=== PATIENT | male | born 1935 | race African-American/Black ===

== ENCOUNTER 2017-06-12 09:24 | Inpatient (IN) | payer OTHER, MEDICARE ==
[2017-06-12] VITALS (11 sets, daily range): BP systolic 140–211; BP diastolic 78–118; PULSE 77–115; RESP 16–19; TEMP 97.6–100.7; O2SAT 96–100
[~2017-06-12] VITALS: Ht 172.7 cm; Wt 61.0 kg
[~2017-06-12 09:24] MED LIST: AMLO10 PO; ASPI325T PO; DOXA1 PO; HYDR-2768 PO; IBUP400T20 PO; LISI-366 PO; SULF1TAB47 PO; TOPR200T PO
[2017-06-12] MEDS ORDERED: SODIUM CHLORID 0.9% 500 ML INJ 500 ML IV ONE (09:45)
[2017-06-12] MEDS ORDERED: ONDANSETRON HCL 4 MG/2 ML VIAL IV PUSH ONE (09:45)
--- NOTE | 2017-06-12 09:57 | PD ---
HPI Chief Complaint: Abdominal Pain Time Seen by Provider: 09:42 Travel History International Travel<30 days: No Contact w/Intl Traveler<30days: No Traveled to known affect area: No History of Present Illness HPI 81-year-old male presents with about a week of abdominal pain and vomiting with difficulty going to the bathroom. He states he was given a constipation medication that he does not know the name once and that was able to help him go to the bathroom but he still having the pain and vomiting. He states he gets this every so often it was here a couple months ago but he does not know what he was here for. Quality is crampy. Location is [place]. He denies any other concurrent complaints but history is limited as patient is a poor historian. PFSH Past Medical History Blood Disorders: No Cancer: Yes (PROSTATE) Cardiovascular Problems: No Chemotherapy: No Congestive Heart Failure: Yes Diminished Hearing: No Endocrine: No Gastrointestinal Disorders: No Genitourinary: No Hypertension: Yes Immune Disorder: No Musculoskeletal: No Neurologic: No Psychiatric: No Reproductive: No Respiratory: No Radiation Therapy: No Renal Failure: Yes Sickle Cell Disease: No ?: Not Past Surgical History Abdominal Surgery: Yes (spleenectomy) AICD: No Arteriovenous Shunt: No Ear Surgery: No Eye Surgery: No Genitourinary Surgery: Yes Gynecologic Surgery: No Insulin Pump: No Joint Replacement: No Oral Surgery: No Pacemaker: No Thoracic Surgery: No Other Surgery: No Social History Alcohol Use: No Tobacco Use: Yes (CHEWS TOBACCO) Substance Use: No Allergies-Medications (Allergen,Severity, Reaction): Coded Allergies: No Known Allergies (Verified Allergy, Unknown, 06/12/17) Reported Meds & Prescriptions Reported Meds & Active Scripts Active Review of Systems Except as stated in HPI: all other systems reviewed are Neg Physical Exam Narrative GENERAL: 81-year-old male in no apparent distress SKIN: Focused skin assessment warm/dry. HEAD: Atraumatic. Normocephalic. EYES: no scleral icterus. No injection or drainage. ENT: No nasal bleeding or discharge. Mucous membranes pink and moist. NECK: Trachea midline. No JVD. CARDIOVASCULAR: Regular rate and rhythm. RESPIRATORY: No accessory muscle use. Clear to auscultation. Breath sounds equal bilaterally. GASTROINTESTINAL: Abdomen soft, tenderness to periumbilical area, nondistended. no rebound MUSCULOSKELETAL: No obvious deformities. No clubbing. No cyanosis. No edema. NEUROLOGICAL: Awake. Moves all extremities. Normal speech. Data Data Last Documented VS Vital Signs Date Time Temp Pulse Resp B/P (MAP) Pulse Ox O2 Delivery O2 Flow Rate FiO2 06/12/17 12:58 103 19 191/118 (142) 99 Room Air 06/12/17 09:40 97.6 Orders Orders Complete Blood Count With Diff (06/12/17 09:32) Comprehensive Metabolic Panel (06/12/17 09:32) Urinalysis - C+S If Indicated (06/12/17 09:32) Lipase (06/12/17 09:32) Iv Access Insert/Monitor (06/12/17 09:32) Electrocardiogram (06/12/17 ) Sodium Chlorid 0.9% 500 Ml Inj (Ns 500 M (06/12/17 09:45) Ondansetron Inj (Zofran Inj) (06/12/17 09:45) Ct Abd/Pel W/O Iv Contrast (06/12/17 ) Type And Screen (06/12/17 11:08) Blood Product Administration (06/12/17 11:18) Sodium Chlor 0.9% 250 Ml Inj (Ns 250 Ml (06/12/17 11:30) Urinary Catheter Insert/Apply (06/12/17 11:20) Hydralazine (Apresoline) (06/12/17 11:45) Consult Urology (06/12/17 ) Morphine Inj (Morphine Inj) (06/12/17 13:15) (Hub Use Only)Inp Phy Cons/Ref (06/12/17 ) Hydralazine Inj (Apresoline Inj) (06/12/17 13:15) Admit Order (Ed Use Only) (06/12/17 13:09) Labs Laboratory Tests Test 06/12/17 09:43 06/12/17 11:21 White Blood Count 12.3 TH/MM3 Red Blood Count 3.43 MIL/MM3 Hemoglobin 7.3 GM/DL Hematocrit 22.9 % Mean Corpuscular Volume 66.8 FL Mean Corpuscular Hemoglobin 21.3 PG Mean Corpuscular Hemoglobin Concent 31.9 % Red Cell Distribution Width 20.7 % Platelet Count 417 TH/MM3 Mean Platelet Volume 6.8 FL Neutrophils (%) (Auto) 89.3 % Lymphocytes (%) (Auto) 6.5 % Monocytes (%) (Auto) 3.4 % Eosinophils (%) (Auto) 0.0 % Basophils (%) (Auto) 0.8 % Neutrophils # (Auto) 11.0 TH/MM3 Lymphocytes # (Auto) 0.8 TH/MM3 Monocytes # (Auto) 0.4 TH/MM3 Eosinophils # (Auto) 0.0 TH/MM3 Basophils # (Auto) 0.1 TH/MM3 CBC Comment DIFF FINAL Differential Comment Blood Urea Nitrogen 66 MG/DL Creatinine 4.03 MG/DL Random Glucose 136 MG/DL Total Protein 8.7 GM/DL Albumin 3.3 GM/DL Calcium Level 8.5 MG/DL Alkaline Phosphatase 78 U/L Aspartate Amino Transf (AST/SGOT) 16 U/L Alanine Aminotransferase (ALT/SGPT) 15 U/L Total Bilirubin 0.2 MG/DL Sodium Level 135 MEQ/L Potassium Level 5.1 MEQ/L Chloride Level 101 MEQ/L Carbon Dioxide Level 24.8 MEQ/L Anion Gap 9 MEQ/L Estimat Glomerular Filtration Rate 17 ML/MIN Lipase 326 U/L Urine Color YELLOW Urine Turbidity CLEAR Urine pH 8.0 Urine Specific [place] 1.013 Urine Protein 30 mg/dL Urine Glucose (UA) NEG mg/dL Urine Ketones NEG mg/dL Urine Occult Blood NEG Urine Nitrite NEG Urine Bilirubin NEG Urine Urobilinogen LESS THAN 2.0 MG/DL Urine Leukocyte Esterase NEG Urine RBC LESS THAN 1 /hpf Urine WBC 3 /hpf Urine Squamous Epithelial Cells 1 /hpf Microscopic Urinalysis Comment CATH-CULT NOT IND MDM Medical Decision Making Medical Screen Exam Complete: Yes Emergency Medical Condition: Yes Medical Record Reviewed: Yes (Past history confirmed) Interpretation(s) CBC & BMP Diagram 06/12/17 09:43 Total Protein 8.7 H, Albumin 3.3 L, Calcium Level 8.5, Alkaline Phosphatase 78, Aspartate Amino Transf (AST/SGOT) 16, Alanine Aminotransferase (ALT/SGPT) 15, Total Bilirubin 0.2 Last 24 hours Impressions Abdomen/Pelvis CT 06/12/17 0000 Signed Impressions: Service Date/Time: Monday, June 12, 2017 11:31 - CONCLUSION: Severely distended bladder with massive hydronephrosis left kidney. Massive hydronephrosis right kidney. Mass cannot be excluded. Trace ascites Follow up CT scan with IV contrast would be of benefit after bladder decompression and relief of the hydronephrosis. Rick Palomo MD FACR Differential Diagnosis Obstruction, pancreatitis, gastritis, gastroenteritis, constipation Narrative Course We will check blood work, urinalysis, CT scan abdominal pelvis and dose with Zofran and reevaluate labs with critical anemia. Guaiac negative. This is likely a combination from his renal failure and iron deficiency. Will start with 1 unit replacement. Patient's blood pressure is elevated this is likely secondary to pain. Given morphine and p.o. hydralazine and it started to improve. Given additional 10 mg of IV hydralazine and now is in the 120s. Assisted Dr. Hernandez with Mcmillan placement which was difficult and needed dilation and finally a small catheter was placed with significant urine output. This Mcmillan catheter cannot be removed unless discussed with the urologist. Patient will be admitted to the hospital for bladder outlet obstruction leading to significant hydronephrosis and renal failure with concurrent hypertensive urgency and anemia. Critical Care Narrative Aggregate critical care time was 45 minutes. Time to perform other separately billable procedures was not included in the critical care time. My time did not include minutes spent treating any other patients simultaneously or on activities that did not directly contribute to the patient's treatment. The services I provided to this patient were to treat and/or prevent clinically significant deterioration that could result in: Worsening renal failure, , bladder rupture I provided critical care services requiring my management, as noted below: Chart data review, documentation time, medication orders and management, vital sign assessments/reviewing monitor data, ordering and reviewing lab tests, ordering and interpreting/reviewing x-rays and diagnostic studies, care of the patient and discussion of the patient with the admitting physicians. Physician Communication Physician Communication dr hernandez called back at [phone] and will come in, asked for urology cart dr borrego agrees to admit Diagnosis Primary Impression: BLADDER NECK OBSTRUCTION Additional Impressions: Renal failure Qualified Codes: N19 - Unspecified kidney failure Hypertensive urgency Anemia Qualified Codes: D64.9 - Anemia, unspecified Admitting Information Admitting Physician Requests: it Sheri Tobin MD Jun 12, 2017 09:57
[2017-06-12 10:11] LABS: BASOPHIL # 0.1 TH/MM3 (0-0.2); BASOPHIL % 0.8 % (0.0-2.0); HEMATOCRIT 22.9 % (39.0-51.0); HEMOGLOBIN 7.3 GM/DL (13.0-17.0); LYMPH % 6.5 % (9.0-44.0); LYMPHOCYTE # 0.8 TH/MM3 (1.0-4.8); MEAN CELL VOLUME 66.8 FL (80.0-100.0); MEAN CORPUSCULAR HEMOGLOBIN 21.3 PG (27.0-34.0); MEAN CORPUSCULAR HGB CONC 31.9 % (32.0-36.0); MEAN PLATELET VOLUME 6.8 FL (7.0-11.0); MONO % 3.4 % (0.0-8.0); MONOCYTE # 0.4 TH/MM3 (0-0.9); NEUT % 89.3 % (16.0-70.0); PLATELET COUNT 417 TH/MM3 (150-450); RED BLOOD COUNT 3.43 MIL/MM3 (4.50-5.90); RED CELL DISTRIBUTION WIDTH 20.7 % (11.6-17.2); WHITE BLOOD COUNT 12.3 TH/MM3 (4.0-11.0)
[2017-06-12 10:33] LABS: ALBUMIN 3.3 GM/DL (3.4-5.0); ALT (GPT) 15 U/L (12-78); AST (GOT) 16 U/L (15-37); BICARBONATE 24.8 MEQ/L (21.0-32.0); BLOOD UREA NITROGEN 66 MG/DL (7-18); CALCIUM 8.5 MG/DL (8.5-10.1); CHLORIDE 101 MEQ/L (98-107); CREATININE 4.03 MG/DL (0.60-1.30); GLOMERULAR FILTRATION RATE 17 ML/MIN (>89); GLUCOSE,RANDOM 136 MG/DL (74-106); SODIUM (NA) 135 MEQ/L (136-145)
[2017-06-12 10:35] LABS: ALKALINE PHOSPHATASE 78 U/L (45-117); TOTAL BILIRUBIN ADULT 0.2 MG/DL (0.2-1.0); TOTAL PROTEIN 8.7 GM/DL (6.4-8.2)
[2017-06-12] MEDS ORDERED: SODIUM CHLOR 0.9% 250 ML INJ 250 ML IV ONE ×2 (11:30→14:15)
[2017-06-12] MEDS ORDERED: hydrALAZINE HCL 10 MG TAB PO ONE (11:45)
--- NOTE | 2017-06-12 11:55 | RADRPT ---
EXAM DATE/TIME: 06/12/2017 11:31 [facility] COMPARISON: No previous studies available for comparison. INDICATIONS : Abdominal pain with nausea and vomiting. ORAL CONTRAST: No oral contrast ingested. RADIATION DOSE: 12.37 CTDIvol (mGy) MEDICAL HISTORY : Hypertension. Renal failure, chronic. SURGICAL HISTORY : Splenectomy. ENCOUNTER: Initial ACUITY: 1 day PAIN SCALE: 0/10 LOCATION: abdomen TECHNIQUE: Volumetric scanning of the abdomen and pelvis was performed. Using automated exposure control and ad justment of the mA and/or kV according to patient size, radiation dose was kept as low as reasonably achievable to obtain optimal diagnostic quality images. DICOM format image data is available electro nically for review and comparison. FINDINGS: Compensated cardiomegaly without effusion. Dilated descending aorta to 4.1 cm. Trace ascites.. Liver is free of focal defects. 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 There is massive hydronephrosis of the left kidney. The bladder is distended, projected approximately 8 cm above the umbilicus. Pelvic contents otherwise unremarkable. CONCLUSION: Severely distended bladder with massive hydronephrosis left kidney. Massive hydronephrosis right kidney. Mass cannot be excluded. Trace ascites Follow up CT scan with IV contrast would be of benefit after bladder decompression and relief of the hydronephrosis. Rick Palomo MD FACR on June 12, 2017 at 11:47 Board Certified Radiologist. This report was verified electronically.
[2017-06-12 12:00] LABS: BILIRUBIN, URINE NEG (NEG); BLOOD, URINE NEG (NEG); GLUCOSE,URINE NEG (NEG); KETONE, URINE NEG (NEG); NITRITE,URINE NEG (NEG); SQUAMOUS EPITHELIAL CELL URINE 1 /hpf (0-5); URINE COLOR YELLOW (YELLW/STRAW); URINE LEUKOCYTE ESTERASE NEG (NEG)
[2017-06-12] MEDS ORDERED: hydrALAZINE HCL 20 MG/ML VIAL IV PUSH ONE (13:15)
[2017-06-12] MEDS ORDERED: ACETAMINOPHEN/HYDROcodone 325 MG/5 MG TAB PO PRN (13:15)
[2017-06-12] MEDS ORDERED: ACETAMINOPHEN 325 MG TAB PO PRN ×2 (13:15)
[2017-06-12] MEDS ORDERED: ONDANSETRON HCL 4 MG/2 ML VIAL IVP PRN (13:15)
[2017-06-12] MEDS ORDERED: RESP: ALBUTEROL 2.5 MG/IPRATROPIUM 0.5 MG NEB (PRN) NEB ×2 (13:15→13:30)
[2017-06-12] MEDS ORDERED: NALOXONE HCL 0.4 MG/ML AMP IV PUSH PRN (13:15)
[2017-06-12] MEDS ORDERED: MORPHINE SULFATE 4 MG/ML INJ IV PUSH ONE (13:15)
[2017-06-12] MEDS ORDERED: ACETAMINOPHEN/HYDROcodone 325 MG/7.5 MG TAB PO PRN (13:15)
[2017-06-12] MEDS ORDERED: MAGNESIUM HYDROXIDE SUSP 30 ML CUP PO PRN (13:15)
[2017-06-12] MEDS ORDERED: SODIUM CHLORIDE 0.9% FLUSH 10 ML FLUSH IV FLUSH PRN (13:15)
--- NOTE | 2017-06-12 13:52 | PD.CONS ---
HPI Service Urology Consult Requested By Reason for Consult Chyna Primary Care Physician Unknown Diagnosis: History of Present Illness 81yo male with history of urinary retention. Patient reports unable to void with difficulty in voiding recently until now where he is unable to urinate at all. Uncofmartable. Multiple attempts by nursing staff unsuccessful to place [place]. No hematuria, no fevers. History of urological procedure to his urethra years ago. Review of Systems ROS Limitations: Clinical Condition Constitutional: DENIES: Fever Eyes: DENIES: Blurred vision Ears, nose, mouth, throat: DENIES: Hearing loss Respiratory: DENIES: Cough Cardiovascular: DENIES: Chest pain Gastrointestinal: COMPLAINS OF: Abdominal pain Genitourinary: DENIES: Hematuria Musculoskeletal: COMPLAINS OF: Back pain Neurologic: DENIES: Abnormal gait Psychiatric: DENIES: Anxiety Except as stated in HPI: all other systems reviewed are Neg Past Family Social History Past Medical History Chronic kidney disease stage IV Hypertension History of bladder outlet obstruction Medical noncompliance Past Surgical History cystoscopy with 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 07/2010 Reported Medications Reported Meds & Active Scripts Active Allergies: Coded Allergies: No Known Allergies (Verified Allergy, Unknown, 06/12/17) Active Ordered Medications Current Medications Medications (Trade) Dose Ordered Sig/Carol Route Start Time Stop Time Status Last Admin (NS Flush) 2 ml UNSCH PRN IV FLUSH 06/12/17 13:15 (NS Flush) 2 ml BID IV FLUSH 06/12/17 21:00 06/15/17 09:18 (Tylenol) 650 mg Q4H PRN PO 06/12/17 13:15 (Zofran Inj) 4 mg Q6H PRN IVP 06/12/17 13:15 (Tylenol) 650 mg Q6H PRN PO 06/12/17 13:15 ([place] 5-325 Mg) 1 tab Q4H PRN PO 06/12/17 13:15 ([place] 7.5-325 Mg) 1 tab Q4H PRN PO 06/12/17 13:15 (Narcan Inj) 0.4 mg UNSCH PRN IV PUSH 06/12/17 13:15 (Milk Of Magnesia Liq) 30 ml Q12H PRN PO 06/12/17 13:15 (Duoneb Neb) 1 ampule Q2HR NEB PRN NEB 06/12/17 13:15 (Norvasc) 5 mg DAILY PO 06/13/17 09:00 06/15/17 09:17 (Apresoline) 25 mg Q8HR PRN PO 06/12/17 14:30 06/14/17 23:56 (Lopressor) 50 mg Q12HR PO 06/12/17 21:00 06/15/17 09:17 (Cipro) 250 mg Q12HR PO 06/14/17 21:00 06/15/17 09:17 Cefepime HCl 2000 mg/Sodium Chloride 100 ml @ 200 mls/hr Q24H IV 06/14/17 16:00 06/14/17 16:46 Family History Family history reviewed and noncontributory to present illness Social History He denies tobacco, alcohol or illicit drug intake Physical Exam Vital Signs Date Time Temp Pulse Resp B/P (MAP) Pulse Ox O2 Delivery O2 Flow Rate FiO2 06/12/17 12:58 103 19 191/118 (142) 99 Room Air 06/12/17 10:50 101 18 211/118 (149) 100 Room Air 06/12/17 09:40 97.6 77 18 185/88 (120) 100 Room Air 06/12/17 09:36 18 Physical Exam GENERAL: This is a well-nourished, well-developed patient, in no apparent distress. SKIN: No rashes, ecchymoses or lesions. Cool and dry. HEAD: Atraumatic. Normocephalic EYES: Extraocular motions intact. No scleral icterus. No injection or drainage. ENT: Nose without bleeding, purulent drainage. Airway patent. NECK: Trachea midline. No JVD or lymphadenopathy. Supple, nontender, no meningeal signs. CARDIOVASCULAR: Normal pulse RESPIRATORY: Nonlabored GASTROINTESTINAL: Abdomen soft, non-tender, nondistended. : Bilateral descended testis, no mass, normal urethral meatus MUSCULOSKELETAL: Extremities without clubbing, cyanosis, or edema. NEUROLOGICAL: Awake and alert. Motor and sensory grossly within normal limits. Normal speech. Lab results reviewed: Yes Laboratory Tests Test 06/12/17 09:43 06/12/17 11:21 White Blood Count 12.3 Red Blood Count 3.43 Hemoglobin 7.3 Hematocrit 22.9 Mean Corpuscular Volume 66.8 Mean Corpuscular Hemoglobin 21.3 Mean Corpuscular Hemoglobin Concent 31.9 Red Cell Distribution Width 20.7 Platelet Count 417 Mean Platelet Volume 6.8 Neutrophils (%) (Auto) 89.3 Lymphocytes (%) (Auto) 6.5 Monocytes (%) (Auto) 3.4 Eosinophils (%) (Auto) 0.0 Basophils (%) (Auto) 0.8 Neutrophils # (Auto) 11.0 Lymphocytes # (Auto) 0.8 Monocytes # (Auto) 0.4 Eosinophils # (Auto) 0.0 Basophils # (Auto) 0.1 CBC Comment DIFF FINAL Differential Comment Blood Urea Nitrogen 66 Creatinine 4.03 Random Glucose 136 Total Protein 8.7 Albumin 3.3 Calcium Level 8.5 Alkaline Phosphatase 78 Aspartate Amino Transf (AST/SGOT) 16 Alanine Aminotransferase (ALT/SGPT) 15 Total Bilirubin 0.2 Sodium Level 135 Potassium Level 5.1 Chloride Level 101 Carbon Dioxide Level 24.8 Anion Gap 9 Estimat Glomerular Filtration Rate 17 Lipase 326 Urine Color YELLOW Urine Turbidity CLEAR Urine pH 8.0 Urine Specific [place] 1.013 Urine Protein 30 Urine Glucose (UA) NEG Urine Ketones NEG Urine Occult Blood NEG Urine Nitrite NEG Urine Bilirubin NEG Urine Urobilinogen LESS THAN 2.0 Urine Leukocyte Esterase NEG Urine RBC LESS THAN 1 Urine WBC 3 Urine Squamous Epithelial Cells 1 Microscopic Urinalysis Comment CATH-CULT NOT IND Result Diagram: 06/12/17 0943 06/12/17 0943 Personally reviewed images: Yes Imaging Last Impressions Abdomen/Pelvis CT 06/12/17 0000 Signed Impressions: Service Date/Time: Monday, June 12, 2017 11:31 - CONCLUSION: Severely distended bladder with massive hydronephrosis left kidney. Massive hydronephrosis right kidney. Mass cannot be excluded. Trace ascites Follow up CT scan with IV contrast would be of benefit after bladder decompression and relief of the hydronephrosis. Rick Palomo MD FACR Assessment and Plan Problem List: (1) BLADDER NECK OBSTRUCTION Status: Chronic (2) Hypertensive urgency ICD Code: I16.0 - Hypertensive urgency Status: Acute Assessment and Plan 12 fr pan[place] catheter successfully placed after urethral dilation Maintain pan[place] catheter in place. Patient may be discharged with catheter in place for further evaluation in Urology clinic DO NOT REMOVE CATHETER Please call with questions Tommy Hernandez MD Jun 12, 2017 13:52
[2017-06-12] MEDS ORDERED: SODIUM CHLOR 0.9% 1000 ML INJ 1,000 ML IV SCH (14:00)
--- NOTE | 2017-06-12 14:15 | HHI.HP ---
[facility] Service [place] [facility] Primary Care Physician Unknown Admission Diagnosis bladder outlet obstruction, hypertensive urgency, anemia, renal fail Diagnoses: (1) CKD (chronic kidney disease), stage IV (2) Anemia in CKD (chronic kidney disease) (3) BLADDER NECK OBSTRUCTION (4) Hypertensive urgency Chief Complaint: Urinary retention with pelvic pain Travel History International Travel<30 Days: No Contact w/Intl Traveler <30 Da: No Traveled to Known Affected Are: No History of Present Illness 81-year-old male with a history of chronic kidney disease stage IV, hypertension , medical noncompliance, prior history of cystoscopy with 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 07/2010 was brought to the ED for evaluation of 1 week history of worsening abdominal and pelvic pain associated with urinary retention for which urology was consulted. Patient states, he hasn't been able to go to bathroom causing severe abdominal distention and pain rated over 8 in intensity. He denies any hematuria. CT abdomen/pelvics in ED reveals bilateral massive hydronephrosis. 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/2010 Reported Medications See EMR Allergies: Coded Allergies: No Known Allergies (Verified Allergy, Unknown, 06/12/17) Family History Due to patient's advanced age, family history not relevant for this case Social History He denies tobacco, alcohol or illicit drug intake Physical Exam Vital Signs Vital Signs Date Time Temp Pulse Resp B/P (MAP) Pulse Ox O2 Delivery O2 Flow Rate FiO2 06/12/17 12:58 103 19 191/118 (142) 99 Room Air 06/12/17 10:50 101 18 211/118 (149) 100 Room Air 06/12/17 09:40 97.6 77 18 185/88 (120) 100 Room Air 06/12/17 09:36 18 Physical Exam GENERAL: This is a well-nourished, well-developed patient, in no apparent distress. SKIN: No rashes, ecchymoses or lesions. Cool and dry. HEAD: Atraumatic. Normocephalic. No temporal or scalp tenderness. EYES: Pupils equal round and reactive. Extraocular motions intact. No scleral icterus. No injection or drainage. ENT: Nose without bleeding, purulent drainage or septal hematoma. Throat without erythema, tonsillar hypertrophy or exudate. Uvula midline. Airway patent. NECK: Trachea midline. No JVD or lymphadenopathy. Supple, nontender, no meningeal signs. CARDIOVASCULAR: Regular rate and rhythm without murmurs, gallops, or rubs. RESPIRATORY: Clear to auscultation. Breath sounds equal bilaterally. No wheezes , rales, or rhonchi. GASTROINTESTINAL: Abdomen soft, non-tender, nondistended. No hepato-splenomegaly , or palpable masses. No guarding. MUSCULOSKELETAL: Extremities without clubbing, cyanosis, or edema. No joint tenderness, effusion, or edema noted. No calf tenderness. Negative Homans sign bilaterally. : Mcmillan in place NEUROLOGICAL: Awake and alert. Cranial nerves II through XII intact. Motor and sensory grossly within normal limits. Five out of 5 muscle strength in all muscle groups. Normal speech. Laboratory Laboratory Tests Test 06/12/17 09:43 06/12/17 11:21 White Blood Count 12.3 Red Blood Count 3.43 Hemoglobin 7.3 Hematocrit 22.9 Mean Corpuscular Volume 66.8 Mean Corpuscular Hemoglobin 21.3 Mean Corpuscular Hemoglobin Concent 31.9 Red Cell Distribution Width 20.7 Platelet Count 417 Mean Platelet Volume 6.8 Neutrophils (%) (Auto) 89.3 Lymphocytes (%) (Auto) 6.5 Monocytes (%) (Auto) 3.4 Eosinophils (%) (Auto) 0.0 Basophils (%) (Auto) 0.8 Neutrophils # (Auto) 11.0 Lymphocytes # (Auto) 0.8 Monocytes # (Auto) 0.4 Eosinophils # (Auto) 0.0 Basophils # (Auto) 0.1 CBC Comment DIFF FINAL Differential Comment Blood Urea Nitrogen 66 Creatinine 4.03 Random Glucose 136 Total Protein 8.7 Albumin 3.3 Calcium Level 8.5 Alkaline Phosphatase 78 Aspartate Amino Transf (AST/SGOT) 16 Alanine Aminotransferase (ALT/SGPT) 15 Total Bilirubin 0.2 Sodium Level 135 Potassium Level 5.1 Chloride Level 101 Carbon Dioxide Level 24.8 Anion Gap 9 Estimat Glomerular Filtration Rate 17 Lipase 326 Urine Color YELLOW Urine Turbidity CLEAR Urine pH 8.0 Urine Specific [place] 1.013 Urine Protein 30 Urine Glucose (UA) NEG Urine Ketones NEG Urine Occult Blood NEG Urine Nitrite NEG Urine Bilirubin NEG Urine Urobilinogen LESS THAN 2.0 Urine Leukocyte Esterase NEG Urine RBC LESS THAN 1 Urine WBC 3 Urine Squamous Epithelial Cells 1 Microscopic Urinalysis Comment CATH-CULT NOT IND Result Diagram: 06/12/17 0943 06/12/17 0943 Imaging Last Impressions Abdomen/Pelvis CT 06/12/17 0000 Signed Impressions: Service Date/Time: Monday, June 12, 2017 11:31 - CONCLUSION: Severely distended bladder with massive hydronephrosis left kidney. Massive hydronephrosis right kidney. Mass cannot be excluded. Trace ascites Follow up CT scan with IV contrast would be of benefit after bladder decompression and relief of the hydronephrosis. Rick Palomo MD FACR Septic Shock Reassessment Septic shock perfusion: reassessment completed Caprini VTE Risk Assessment Caprini VTE Risk Assessment: Mod/High Risk (score >= 2) Caprini Risk Assessment Model Point Value = 1 Point Value = 2 Point Value = 3 Point Value = 5 Age 41-60 Minor surgery BMI > 25 kg/m2 Swollen legs Varicose veins or History of unexplained or recurrent spontaneous Oral contraceptives or hormone replacement Sepsis (< 1 month) Serious lung disease, including pneumonia (< 1 month) Abnormal pulmonary function Acute myocardial infarction Congestive heart failure (< 1 month) History of inflammatory bowel disease Medical patient at bed rest Age 61-74 Arthroscopic surgery Major open surgery (> 45 min) Laparoscopic surgery (> 45 min) Malignancy Confined to bed (> 72 hours) Immobilizing plaster cast Central venous access Age >= 75 History of VTE Family history of VTE Factor V Leiden Prothrombin [id number] Lupus anticoagulant Anticardiolipin antibodies Elevated serum homocysteine Heparin-induced thrombocytopenia Other congenital or acquired thrombophilia Stroke (< 1 month) Elective arthroplasty Hip, pelvis, or leg fracture Acute spinal cord injury (< 1 month) Prophylaxis Regimen Total Risk Factor Score Risk Level Prophylaxis Regimen 0-1 Low Early ambulation 2 Moderate Order ONE of the following: *Sequential Compression Device (SCD) *Heparin 5000 units SQ BID 3-4 Higher Order ONE of the following medications: *Heparin 5000 units SQ TID *Enoxaparin/Lovenox 40 mg SQ daily (WT < 150 kg, CrCl > 30 mL/min) *Enoxaparin/Lovenox 30 mg SQ daily (WT < 150 kg, CrCl > 10-29 mL/min) *Enoxaparin/Lovenox 30 mg SQ BID (WT < 150 kg, CrCl > 30 mL/min) AND/OR *Sequential Compression Device (SCD) 5 or more Highest Order ONE of the following medications: *Heparin 5000 units SQ TID (Preferred with Epidurals) *Enoxaparin/Lovenox 40 mg SQ daily (WT < 150 kg, CrCl > 30 mL/min) *Enoxaparin/Lovenox 30 mg SQ daily (WT < 150 kg, CrCl > 10-29 mL/min) *Enoxaparin/Lovenox 30 mg SQ BID (WT < 150 kg, CrCl > 30 mL/min) AND *Sequential Compression Device (SCD) Assessment and Plan Problem List: (1) Hydronephrosis due to obstruction of bladder ICD Code: N13.30 - Unspecified hydronephrosis; N32.0 - Bladder-neck obstruction (2) BLADDER NECK OBSTRUCTION Status: Chronic (3) CKD (chronic kidney disease), stage IV ICD Code: N18.4 - Chronic kidney disease, stage 4 (severe) (4) Anemia in CKD (chronic kidney disease) ICD Code: N18.9 - Chronic kidney disease, unspecified; D63.1 - Anemia in chronic kidney disease (5) Hypertensive urgency ICD Code: I16.0 - Hypertensive urgency Status: Acute Assessment and Plan 81-year-old man with Bilateral Hydronephrosis due to obstruction of bladder Urinary retention CT abdomen/pelvics noted and review by me with finding of bilateral severe hydronephrosis Urology was consulted, patient had 12 fr Mcmillan catheter successfully placed after dilation Per urology, Mcmillan can Only Be Removed per Instruction from Urology, who should be called first Leukocytosis Likely reactive, as UA negative therefore will hold on starting any antibiotic Monitor for sign of infection Anemia of chronic disease Check Iron study Transfuse 2 units PRBC and monitor H/H Hypertensive urgency Responded to IV + PO Hydralazine 30mg total Start PO Norvasc 5mg as well as Lopressor 25mg BID Chronic kidney disease stage IV Patient's currently at his baseline Secondary to noncompliance however will check renal ultrasound Nephrology consultation when necessary Elevated blood glucose No known history of diabetes type 2, check hemoglobin A1c and treat accordingly Check lipid profile DVT prophylaxis: B-SCD Code Status Full code Discussed Condition With Patient, ED physician Physician Certification 2 Midnight Certification Type: Admission for Inpatient Services Order for Inpatient Services The services are ordered in accordance with Medicare regulations or non- Medicare payer requirements, as applicable. In the case of services not specified as inpatient-only, they are appropriately provided as inpatient services in accordance with the 2-midnight benchmark. Estimated LOS (days): 2 days is the estimated time the patient will need to remain in the hospital, assuming treatment plan goals are met and no additional complications. Post-Hospital Plan: Not yet determined Casimiro Guthrie MD Jun 12, 2017 14:15
[2017-06-12] MEDS: hydrALAZINE HCL 25 MG TAB PO PRN (15:40)
[2017-06-12 15:47] LABS: % SATURATION IRON PROFILE 4.4 % (20-50); IRON (FE) 14 MCG/DL (65-175); TOTAL IRON BINDING CAPACITY 318 MCG/DL (250-450)
[2017-06-12] MEDS ORDERED: cloNIDine HCL 0.2 MG TAB PO ONE (17:00)
--- NOTE | 2017-06-12 17:47 | RADRPT ---
EXAM DATE/TIME: 06/12/2017 17:07 [place] COMPARISON: No previous studies available for comparison. INDICATIONS : Increased BUN/Creatinine. MEDICAL HISTORY : Hypertension. Renal failure, chronic. Carcinoma, prostate. Arthritis. Depression. SURGICAL HISTORY : Bladder surgery. ENCOUNTER: Initial ACUITY: 1 day PAIN SCORE: 3/10 LOCATION: Bilateral flank MEASUREMENTS: RIGHT KIDNEY: 18.0 x 9.2 x 8.8 cm LEFT KIDNEY: 13.6 x 5.6 x 9.2 cm FINDINGS: Both kidneys are very difficult to evaluate because of bowel gas and size. There is persistent hydronephrosis. Bladder has residual debris and urine within it with very thick wall. CONCLUSION: Very limited exam, persistent hydronephrosis. Repeat noncontrast CT scan can be used evaluate the kidneys and possible mass on the right. Eventual ly the patient will need either and contrast CT scan of the abdomen and pelvis or MRI. Rick Palomo MD FACR on June 12, 2017 at 17:43 Board Certified Radiologist. This report was verified electronically.
[2017-06-12] MEDS: SODIUM CHLORIDE 0.9% FLUSH 10 ML FLUSH IV FLUSH SCH (20:40)
[2017-06-12] MEDS: METOPROLOL TARTRATE 25 MG TAB PO SCH (20:40)
[2017-06-12] MEDS ORDERED: METOPROLOL TARTRATE 25 MG TAB PO SCH (21:00)
[2017-06-13] VITALS (7 sets, daily range): BP systolic 113–159; BP diastolic 76–89; PULSE 63–96; RESP 16–20; TEMP 96.9–100.2; O2SAT 93–100
[2017-06-13 06:51] LABS: AUTOMATED NEUTROPHIL # 18.5 TH/MM3 (1.8-7.7); BASOPHIL % 0.1 % (0.0-2.0); HEMATOCRIT 24.5 % (39.0-51.0); HEMOGLOBIN 7.9 GM/DL (13.0-17.0); LYMPH % 4.8 % (9.0-44.0); MEAN CELL VOLUME 69.1 FL (80.0-100.0); MEAN CORPUSCULAR HEMOGLOBIN 22.3 PG (27.0-34.0); MEAN CORPUSCULAR HGB CONC 32.3 % (32.0-36.0); MEAN PLATELET VOLUME 6.9 FL (7.0-11.0); MONO % 6.1 % (0.0-8.0); MONOCYTE # 1.3 TH/MM3 (0-0.9); PLATELET COUNT 347 TH/MM3 (150-450); RED BLOOD COUNT 3.55 MIL/MM3 (4.50-5.90); WHITE BLOOD COUNT 20.8 TH/MM3 (4.0-11.0)
[2017-06-13 07:09] LABS: MAGNESIUM 2.7 MG/DL (1.5-2.5); THYROXINE (T4) 6.2 MCG/DL (4.5-12.1)
[2017-06-13 07:23] LABS: ALBUMIN 2.7 GM/DL (3.4-5.0); ALKALINE PHOSPHATASE 66 U/L (45-117); ALT (GPT) 11 U/L (12-78); AST (GOT) 15 U/L (15-37); BICARBONATE 23.4 MEQ/L (21.0-32.0); BLOOD UREA NITROGEN 58 MG/DL (7-18); CALCIUM 8.4 MG/DL (8.5-10.1); CHLORIDE 108 MEQ/L (98-107); CREATININE 3.61 MG/DL (0.60-1.30); GLOMERULAR FILTRATION RATE 20 ML/MIN (>89); SODIUM (NA) 141 MEQ/L (136-145); TOTAL BILIRUBIN ADULT 0.3 MG/DL (0.2-1.0); TOTAL PROTEIN 7.6 GM/DL (6.4-8.2)
[2017-06-13 07:57] LABS: GLUCOSE,RANDOM 40 MG/DL (74-106)
[2017-06-13] MEDS ORDERED: DEXTROSE 50% IN WATER 50 ML SYRINGE ONE (08:10)
[2017-06-13] MEDS ORDERED: Vancomycin Consult Pharmacy 1 EA OTHER SCH (08:45)
[2017-06-13] MEDS: SODIUM CHLORIDE 0.9% FLUSH 10 ML FLUSH IV FLUSH SCH ×2 (08:54→21:00)
[2017-06-13] MEDS: amLODIPine BESYLATE 5 MG TAB PO SCH (08:54)
[2017-06-13] MEDS: METOPROLOL TARTRATE 25 MG TAB PO SCH ×2 (08:54→21:04)
[2017-06-13] MEDS ORDERED: HYDROCORTISONE SOD SUCCINATE 100 MG VIAL IV PUSH ONE (09:30)
[2017-06-13] MEDS ORDERED: DEXTROSE 50% IN WATER 50 ML SYRINGE IV ONE (10:30)
[2017-06-13] MEDS ORDERED: VANCOMYCIN INJ 1,000 MG in SODIUM CHLOR 0.9% 250 ML INJ 250 ML IV ONE (11:00)
[2017-06-13] MEDS: CIPROFLOXACIN 200 MG PREMIX 100 ML IV SCH (11:05)
--- NOTE | 2017-06-13 11:05 | HHI.PR ---
Subjective Remarks The patient is sitting up in the chair and has visitors at this time. He appears to be mildly tired appearing. He reports that his appetite is not very good. He denies any areas of major pain complaints. He is tolerating the current treatment plan well. Objective - Vital Signs Date Time Temp Pulse Resp B/P (MAP) Pulse Ox O2 Delivery O2 Flow Rate FiO2 06/13/17 09:00 99 Nasal Cannula 2.00 06/13/17 08:00 97.9 96 17 159/89 (112) 95 06/13/17 04:00 100.2 63 20 130/85 (100) 96 06/13/17 00:00 100.1 91 20 113/79 (90) 96 06/12/17 20:00 100.7 109 18 140/79 (99) 97 06/12/17 19:10 99.5 107 18 150/78 (102) 97 06/12/17 19:10 99.5 107 18 150/78 97 06/12/17 19:10 99.5 107 18 150/78 97 06/12/17 18:50 99.6 115 18 148/80 (102) 98 06/12/17 18:50 99.6 115 18 148/80 98 06/12/17 16:51 170/80 (110) 06/12/17 16:30 180/80 (113) 06/12/17 16:00 98.0 111 16 180/80 (113) 96 06/12/17 15:48 180/100 (126) 06/12/17 15:45 171/104 (126) 06/12/17 12:58 103 19 191/118 (142) 99 Room Air I/O 06/12/17 06/12/17 06/12/17 06/13/17 06/13/17 06/13/17 07:00 15:00 23:00 07:00 15:00 23:00 Intake Total 890 ml 0 ml Output Total 2000 ml 1500 ml 450 ml Balance -2000 ml -610 ml -450 ml Intake Oral 480 ml 0 ml Packed Cells 400 ml Blood Product IV Normal Saline Flush 10 ml Output Urine Total 2000 ml 1500 ml 450 ml # Voids 0 # Bowel Movements 0 0 Result Diagram: 06/13/17 0540 06/13/17 0540 Objective Remarks GENERAL: Alert, but somewhat tired appearing. SKIN: Warm and dry. HEAD: Normocephalic. EYES: No scleral icterus. No injection or drainage. NECK: Supple, trachea midline. No JVD or lymphadenopathy. CARDIOVASCULAR: Regular rate and rhythm without murmurs, gallops, or rubs. RESPIRATORY: Breath sounds equal bilaterally. No accessory muscle use. GASTROINTESTINAL: Abdomen soft, non-tender and nondistended. MUSCULOSKELETAL: No cyanosis or clubbing. There is mild edema of the distal legs. BACK: Nontender with mild kyphosis of the dorsal spine deformity. No CVA tenderness. NEUROLOGICAL: No obvious focal motor deficits. A/P Assessment and Plan ASSESSMENT 1. Accelerated Hypertension. 2. Acute Kidney Injury on Chronic Kidney Disease, Stage 3. 3. Bladder Neck Outlet Obstruction with Left Kidney Hydronephrosis. 4. Chronic Iron Deficiency Anemia secondary to Chronic Illness and Nutritional Deficit. 5. Benign Prostatic Hypertrophy with Elevated PSA. 6. Early Sepsis Presentation. 7. Recurrent Hypoglycemia. PLAN 1. Blood Cultures to be done. 2. Intravenous antibiotics. 3. Intravenous Dextrose solution. 4. Closely monitor blood pressure. 5. Urology follows. 6. Follow up laboratory assessment. 7. DVT, PE and PUD prophylaxis. Buck Daniel MD Jun 13, 2017 11:04
--- NOTE | 2017-06-13 23:20 | EKG ---
Date Performed: 06/12/2017 Time Performed: 09:43:14 PTAGE: 81 years EKG: Sinus rhythm MARKED LEFT AXIS DEVIATION VOLTAGE CRITERIA FOR LVH POSSIBLE ANTERIOR MYOCARDIAL INFARCTION ABNORMAL ECG PREVIOUS TRACING : 02/04/2007 09.50 Compared to prior tracing, still with LVH criteria, but pr evious has extensive ST/T wave changes due to ischemia vs LVH DOCTOR: Cedric Quach Interpretating Date/Time 06/13/2017 23:18:51
[2017-06-14] VITALS (8 sets, daily range): BP systolic 138–161; BP diastolic 69–84; PULSE 78–90; RESP 16–20; TEMP 96.5–99.6; O2SAT 92–100
[2017-06-14] MEDS: CIPROFLOXACIN 200 MG PREMIX 100 ML IV SCH (05:00)
[2017-06-14 07:38] LABS: BASOPHIL % 0.1 % (0.0-2.0); HEMATOCRIT 22.2 % (39.0-51.0); HEMOGLOBIN 7.2 GM/DL (13.0-17.0); LYMPH % 6.2 % (9.0-44.0); LYMPHOCYTE # 1.2 TH/MM3 (1.0-4.8); MEAN CELL VOLUME 69.1 FL (80.0-100.0); MEAN CORPUSCULAR HEMOGLOBIN 22.5 PG (27.0-34.0); MEAN CORPUSCULAR HGB CONC 32.5 % (32.0-36.0); MEAN PLATELET VOLUME 6.8 FL (7.0-11.0); MONO % 7.9 % (0.0-8.0); MONOCYTE # 1.6 TH/MM3 (0-0.9); NEUT % 85.8 % (16.0-70.0); PLATELET COUNT 295 TH/MM3 (150-450); RED BLOOD COUNT 3.21 MIL/MM3 (4.50-5.90); RED CELL DISTRIBUTION WIDTH 22.3 % (11.6-17.2); WHITE BLOOD COUNT 19.8 TH/MM3 (4.0-11.0)
[2017-06-14 08:03] LABS: ALBUMIN 2.2 GM/DL (3.4-5.0); ALT (GPT) 12 U/L (12-78); AST (GOT) 8 U/L (15-37); BLOOD UREA NITROGEN 60 MG/DL (7-18); CALCIUM 8.4 MG/DL (8.5-10.1); CHLORIDE 105 MEQ/L (98-107); CREATININE 3.07 MG/DL (0.60-1.30); GLOMERULAR FILTRATION RATE 24 ML/MIN (>89); GLUCOSE,RANDOM 78 MG/DL (74-106); SODIUM (NA) 138 MEQ/L (136-145)
[2017-06-14 08:06] LABS: ALKALINE PHOSPHATASE 67 U/L (45-117); TOTAL BILIRUBIN ADULT 0.4 MG/DL (0.2-1.0); TOTAL PROTEIN 6.9 GM/DL (6.4-8.2)
--- NOTE | 2017-06-14 09:17 | HHI.PR ---
Subjective Remarks He is currently sitting up in the chair and states he is ready to eat. He denies any new adverse changes. He appears to be tolerating the current treatment plan. Objective - Vital Signs Date Time Temp Pulse Resp B/P (MAP) Pulse Ox O2 Delivery O2 Flow Rate FiO2 06/14/17 04:00 98.9 90 16 158/69 (98) 98 06/14/17 00:00 98.9 82 18 143/81 (101) 99 06/13/17 20:55 Room Air 06/13/17 19:44 99.4 85 16 129/76 (93) 99 06/13/17 16:00 99.6 90 17 135/86 (102) 100 06/13/17 12:00 96.9 86 17 142/85 (104) 93 I/O 06/13/17 06/13/17 06/13/17 06/14/17 06/14/17 06/14/17 07:00 15:00 23:00 07:00 15:00 23:00 Intake Total 0 ml 1030 ml 240 ml 240 ml Output Total 450 ml 1200 ml 350 ml 300 ml Balance -450 ml -170 ml -110 ml -60 ml Intake Oral 0 ml 680 ml 240 ml 240 ml IV Total 350 ml Output Urine Total 450 ml 1200 ml 350 ml 300 ml # Bowel Movements 0 1 0 0 Result Diagram: 06/14/1752 06/14/17651 Objective Remarks GENERAL: Alert and does not appear to be in any acute distress. SKIN: Warm and dry. HEAD: Normocephalic. Atraumatic. EYES: No scleral icterus. No injection or drainage. NECK: Supple, trachea midline. No JVD or lymphadenopathy. CARDIOVASCULAR: Regular rate and rhythm without murmurs, gallops, or rubs. RESPIRATORY: Breath sounds equal bilaterally. No accessory muscle use. GASTROINTESTINAL: Abdomen soft, non-tender and nondistended. MUSCULOSKELETAL: No cyanosis, or edema. BACK: Nontender without obvious deformity. No CVA tenderness. A/P Assessment and Plan ASSESSMENT 1. Accelerated Hypertension. 2. Acute Kidney Injury on Chronic Kidney Disease, Stage 3. 3. 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 4. Chronic Iron Deficiency Anemia secondary to Chronic Illness and Nutritional Deficit. 5. Benign Prostatic Hypertrophy with Elevated PSA. 6. Early Sepsis Presentation. 7. Recurrent Hypoglycemia. PLAN 1. Blood Cultures are done. 2. Intravenous antibiotics continue. 3. Will transfuse another unit of blood. 4. Closely monitor blood pressure. 5. Urology follows. 6. Follow up laboratory assessment-also awaiting stool for occult blood. 7. DVT, PE and PUD prophylaxis. Buck Daniel MD Jun 14, 2017 09:17
[2017-06-14] MEDS: amLODIPine BESYLATE 5 MG TAB PO SCH (09:23)
[2017-06-14] MEDS: METOPROLOL TARTRATE 25 MG TAB PO SCH ×2 (09:23→21:26)
[2017-06-14] MEDS: SODIUM CHLORIDE 0.9% FLUSH 10 ML FLUSH IV FLUSH SCH ×2 (09:23→21:00)
[2017-06-14 12:04] LABS: BACTERIA, URINE OCC /hpf; BILIRUBIN, URINE NEG (NEG); BLOOD, URINE MOD (NEG); GLUCOSE,URINE NEG (NEG); KETONE, URINE NEG (NEG); MUCUS URINE FEW /lpf (OCC); NITRITE,URINE NEG (NEG); SQUAMOUS EPITHELIAL CELL URINE <1 /hpf (0-5); URINE COLOR YELLOW (YELLW/STRAW); URINE LEUKOCYTE ESTERASE MOD (NEG)
--- NOTE | 2017-06-14 13:28 | PD.CONS ---
History of Present Illness Service Infectious disease Consult Requested By Dr Tyson Daniel Reason for Consult Evaluate patient for sepsis Primary Care Physician Unknown Diagnoses: History of Present Illness Patient seen and examined. Records reviewed. Patient is a very poor historian. Patient is an 81-year-old male, presented to the hospital complaining of one- week history of worsening abdominal and pelvic pain. He apparently has not been able to urinate. He lives alone. He has known metastatic prostate cancer , and has had prior problem with urinary retention. According to the record he is not very compliant as far as follow-up. CT abdomen/pelvics in ED reveals bilateral massive hydronephrosis. Patient also reported constipation over the past several weeks. Urology saw the patient, and a Mcmillan catheter was inserted. Patient had some fevers yesterday. His WBC yesterday was 20,000, and is 19,000 today. His creatinine is elevated. Blood cultures are negative so far. There is no urine culture sent from admission. Patient currently is stating that his abdominal pain is better. Infectious disease consultation has been requested to evaluate the patient for sepsis. Review of Systems ROS Limitations: Clinical Condition, Poor Historian Past Family Social History Allergies: Coded Allergies: No Known Allergies (Verified Allergy, Unknown, 06/12/17) Past Medical History Chronic kidney disease stage IV Hypertension History of bladder outlet obstruction Medical noncompliance Metastatic prostate cancer Past Surgical History cystoscopy with 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 07/2010 Active Ordered Medications Current Medications Medications (Trade) Dose Ordered Sig/Carol Route Start Time Stop Time Status Last Admin (NS Flush) 2 ml UNSCH PRN IV FLUSH 06/12/17 13:15 (NS Flush) 2 ml BID IV FLUSH 06/12/17 21:00 06/14/17 09:23 (Tylenol) 650 mg Q4H PRN PO 06/12/17 13:15 (Zofran Inj) 4 mg Q6H PRN IVP 06/12/17 13:15 (Tylenol) 650 mg Q6H PRN PO 06/12/17 13:15 ([place] 5-325 Mg) 1 tab Q4H PRN PO 06/12/17 13:15 ([place] 7.5-325 Mg) 1 tab Q4H PRN PO 06/12/17 13:15 (Narcan Inj) 0.4 mg UNSCH PRN IV PUSH 3/9/18 13:15 (Milk Of Magnesia Liq) 30 ml Q12H PRN PO 06/12/17 13:15 (Duoneb Neb) 1 ampule Q2HR NEB PRN NEB 06/12/17 13:15 (Norvasc) 5 mg DAILY PO 06/13/17 09:00 06/14/17 09:23 (Apresoline) 25 mg Q8HR PRN PO 06/12/17 14:30 06/12/17 15:40 (Lopressor) 50 mg Q12HR PO 06/12/17 21:00 06/14/17 09:23 Ciprofloxacin/ Dextrose 100 ml @ 100 mls/hr Q18H IV 06/13/17 10:00 06/14/17 05:00 Pharmacy Profile Note 0 ml @ 0 mls/hr UNSCH OTHER 06/13/17 08:45 Family History Noncontributory Social History lives alone No smoking No alcohol abuse No illicit drugs Physical Exam Vital Signs Vital Signs Date Time Temp Pulse Resp B/P (MAP) Pulse Ox O2 Delivery O2 Flow Rate FiO2 06/14/17 08:00 98.8 83 18 138/82 (100) 100 06/14/17 04:00 98.9 90 16 158/69 (98) 98 06/14/17 00:00 98.9 82 18 143/81 (101) 99 06/13/17 20:55 Room Air 06/13/17 19:44 99.4 85 16 129/76 (93) 99 06/13/17 16:00 99.6 90 17 135/86 (102) 100 Physical Exam GENERAL: Patient is a thin, well-developed patient, awake and alert, not in respiratory distress. SKIN: Warm and dry. No generalized rash, no ecchymoses and no evidence of embolic lesions. HEAD: Atraumatic. Normocephalic. No temporal wasting, or tenderness. EYES: [place] conjunctiva. No petechia or hemorrhage. Pupils equal, round and reactive to light. Extraocular movements full and intact. No scleral icterus. No injection or drainage. EARS, NOSE AND THROAT: Nose without bleeding or purulent nasal discharge. No sinus tenderness. Mucous membranes pink and moist. No oral lesions noted. NECK: Trachea midline. Supple and not tender, no meningeal signs CARDIOVASCULAR: Regular rate and rhythm. No murmurs, rubs or gallops heard RESPIRATORY: Clear to auscultation. Breath sounds equal bilaterally. No rales , wheezing or rhonchi ABDOMEN: Soft, non-tender, nondistended. Bowel sounds present and normoactive. No guarding. No rebound. No organomegaly. : Mcmillan in place, urine slightly cloudy with some sediment EXTREMITIES: No clubbing, cyanosis, or edema. No calf tenderness. Well perfused and warm. NEUROLOGICAL: Awake and alert. Cranial nerves grossly intact. Motor grossly within normal limits. PSYCHIATRIC: Normal affect, calm and cooperative. LINE: No evidence of infection Laboratory Laboratory Tests Test 06/13/17 16:21 06/14/17 06:52 06/14/17 10:50 Prostate Specific Antigen 34.66 White Blood Count 19.8 Red Blood Count 3.21 Hemoglobin 7.2 Hematocrit 22.2 Mean Corpuscular Volume 69.1 Mean Corpuscular Hemoglobin 22.5 Mean Corpuscular Hemoglobin Concent 32.5 Red Cell Distribution Width 22.3 Platelet Count 295 Mean Platelet Volume 6.8 Neutrophils (%) (Auto) 85.8 Lymphocytes (%) (Auto) 6.2 Monocytes (%) (Auto) 7.9 Eosinophils (%) (Auto) 0.0 Basophils (%) (Auto) 0.1 Neutrophils # (Auto) 17.0 Lymphocytes # (Auto) 1.2 Monocytes # (Auto) 1.6 Eosinophils # (Auto) 0.0 Basophils # (Auto) 0.0 CBC Comment DIFF FINAL Differential Comment Blood Urea Nitrogen 60 Creatinine 3.07 Random Glucose 78 Total Protein 6.9 Albumin 2.2 Calcium Level 8.4 Alkaline Phosphatase 67 Aspartate Amino Transf (AST/SGOT) 8 Alanine Aminotransferase (ALT/SGPT) 12 Total Bilirubin 0.4 Sodium Level 138 Potassium Level 4.3 Chloride Level 105 Carbon Dioxide Level 25.0 Anion Gap 8 Estimat Glomerular Filtration Rate 24 Urine Color YELLOW Urine Turbidity HAZY Urine pH 8.0 Urine Specific [place] 1.011 Urine Protein 100 Urine Glucose (UA) NEG Urine Ketones NEG Urine Occult Blood MOD Urine Nitrite NEG Urine Bilirubin NEG Urine Urobilinogen LESS THAN 2.0 Urine Leukocyte Esterase MOD Urine RBC 128 Urine WBC 35 Urine Squamous Epithelial Cells <1 Urine Bacteria OCC Urine Mucus FEW Microscopic Urinalysis Comment CATH-CULTURE IND Date/Time Source Procedure Growth Status 06/13/17 10:26 Blood Peripheral Aerobic Blood Culture - Preliminary NO GROWTH IN 1 DAY Resulted 06/13/17 10:26 Blood Peripheral Anaerobic Blood Culture - Preliminary NO GROWTH IN 1 DAY Resulted 06/14/17 10:50 Urine Catheterized Urine Urine Culture Pending Received Result Diagram: 06/14/17 0652 06/14/17 0652 Imaging RADIOLOGY STUDIES/FILMS REVIEWED Renal Ultrasound 06/12/17 0000 Signed Impressions: Service Date/Time: Monday, June 12, 2017 17:07 - CONCLUSION: Very limited exam , persistent hydronephrosis. Repeat noncontrast CT scan can be used evaluate the kidneys and possible mass on the right. Eventually the patient will need either and contrast CT scan of the abdomen and pelvis or MRI. Rick Palomo MD FACR Abdomen/Pelvis CT 06/12/17 0000 Signed Impressions: Service Date/Time: Monday, June 12, 2017 11:31 - CONCLUSION: Severely distended bladder with massive hydronephrosis left kidney. Massive hydronephrosis right kidney. Mass cannot be excluded. Trace ascites Follow up CT scan with IV contrast would be of benefit after bladder decompression and relief of the hydronephrosis. Rick Palomo MD FACR Assessment and Plan Assessment and Plan IMPRESSION Sepsis due to source Bilateral hydronephrosis due to obstructive uropathy Known metastatic prostate CA CKD likely due to chronic obstruction RECOMMENDATION Add Cefepime On Cipro - change to po I have ordered UA and C/S Follow C/S Follow CBC Monitor progress Will determine course of Rx once work-up is completed Discussed Condition With D/W Florinda Fonseca MD Jun 14, 2017 13:28
[2017-06-14] MEDS: CEFEPIME INJ 2,000 MG in SODIUM CHLORIDE 0.9% INJ 100 ML IV SCH (16:46)
[2017-06-14] MEDS: CIPROFLOXACIN 250 MG TAB PO SCH (21:26)
[2017-06-14] MEDS: hydrALAZINE HCL 25 MG TAB PO PRN (23:56)
[2017-06-15] VITALS: BP 182/105; PULSE 100; RESP 20; TEMP 98.5; O2SAT 98
[2017-06-15 01:50] VITALS: BP 150/72
[2017-06-15 07:48] VITALS: BP 143/96; PULSE 90; RESP 18; TEMP 98.7; O2SAT 99
[2017-06-15] MEDS: amLODIPine BESYLATE 5 MG TAB PO SCH (09:17)
[2017-06-15] MEDS: METOPROLOL TARTRATE 25 MG TAB PO SCH ×2 (09:17→21:25)
[2017-06-15] MEDS: CIPROFLOXACIN 250 MG TAB PO SCH ×2 (09:17→21:26)
[2017-06-15] MEDS: SODIUM CHLORIDE 0.9% FLUSH 10 ML FLUSH IV FLUSH SCH ×2 (09:18→21:26)
--- NOTE | 2017-06-15 11:45 | HHI.IDPN ---
Subjective Subjective Remarks Patient is an 81-year-old male, presented to the hospital complaining of one- week history of worsening abdominal and pelvic pain. He apparently has not been able to urinate. He lives alone. He has known metastatic prostate cancer , and has had prior problem with urinary retention. According to the record he is not very compliant as far as follow-up. CT abdomen/pelvics in ED reveals bilateral massive hydronephrosis. Patient also reported constipation over the past several weeks. Urology saw the patient, and a Mcmillan catheter was inserted. Patient had some fevers yesterday. His WBC yesterday was 20,000, and is 19,000 today. His creatinine is elevated. Blood cultures are negative so far. There is no urine culture sent from admission. Patient currently is stating that his abdominal pain is better. Infectious disease consultation has been requested to evaluate the patient for sepsis. Notes reviewed Temps ok C/S pending BC negative Antibiotics Current Medications Cefepime Cipro Medications (Trade) Dose Ordered Sig/Carol Route Start Time Stop Time Status Last Admin (NS Flush) 2 ml UNSCH PRN IV FLUSH 06/12/17 13:15 (NS Flush) 2 ml BID IV FLUSH 06/12/17 21:00 06/15/17 09:18 (Tylenol) 650 mg Q4H PRN PO 06/12/17 13:15 (Zofran Inj) 4 mg Q6H PRN IVP 06/12/17 13:15 (Tylenol) 650 mg Q6H PRN PO 06/12/17 13:15 (Marion 5-325 Mg) 1 tab Q4H PRN PO 06/12/17 13:15 ([place]ion 7.5-325 Mg) 1 tab Q4H PRN PO 06/12/17 13:15 (Narcan Inj) 0.4 mg UNSCH PRN IV PUSH 06/12/17 13:15 (Milk Of Magnesia Liq) 30 ml Q12H PRN PO 06/12/17 13:15 (Duoneb Neb) 1 ampule Q2HR NEB PRN NEB 06/12/17 13:15 (Norvasc) 5 mg DAILY PO 06/13/17 09:00 06/15/17 09:17 (Apresoline) 25 mg Q8HR PRN PO 3/9/18 14:30 06/14/17 23:56 (Lopressor) 50 mg Q12HR PO 06/12/17 21:00 06/15/17 09:17 (Cipro) 250 mg Q12HR PO 06/14/17 21:00 06/15/17 09:17 Cefepime HCl 2000 mg/Sodium Chloride 100 ml @ 200 mls/hr Q24H IV 06/14/17 16:00 06/14/17 16:46 Lines PIV Past Medical History Chronic kidney disease stage IV Hypertension History of bladder outlet obstruction Medical noncompliance Metastatic prostate cancer Past Surgical History cystoscopy with 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 07/2010 Allergies: Coded Allergies: No Known Allergies (Verified Allergy, Unknown, 06/12/17) Objective . Vital Signs Date Time Temp Pulse Resp B/P (MAP) Pulse Ox O2 Delivery O2 Flow Rate FiO2 06/15/17 07:48 98.7 90 18 143/96 (112) 99 06/15/17 01:50 150/72 (98) Automatic Cuff 06/15/17 00:00 98.5 100 20 182/105 (130) 98 06/14/17 21:20 Room Air 06/14/17 20:00 99.6 81 20 161/83 (109) 98 06/14/17 16:20 98.5 78 19 145/70 99 06/14/17 16:01 96.5 79 18 149/84 92 06/14/17 16:00 96.5 79 18 149/84 (105) 92 06/14/17 12:00 99.0 83 18 142/83 (102) 95 06/15/17 06/15/17 06/16/17 15:00 23:00 07:00 Output Total 1450 ml Balance -1450 ml Output Urine Total 1450 ml . Laboratory Tests Test 06/14/17 06:52 White Blood Count 19.8 TH/MM3 Red Blood Count 3.21 MIL/MM3 Hemoglobin 7.2 GM/DL Hematocrit 22.2 % Mean Corpuscular Volume 69.1 FL Mean Corpuscular Hemoglobin 22.5 PG Mean Corpuscular Hemoglobin Concent 32.5 % Red Cell Distribution Width 22.3 % Platelet Count 295 TH/MM3 Mean Platelet Volume 6.8 FL Neutrophils (%) (Auto) 85.8 % Lymphocytes (%) (Auto) 6.2 % Monocytes (%) (Auto) 7.9 % Eosinophils (%) (Auto) 0.0 % Basophils (%) (Auto) 0.1 % Neutrophils # (Auto) 17.0 TH/MM3 Lymphocytes # (Auto) 1.2 TH/MM3 Monocytes # (Auto) 1.6 TH/MM3 Eosinophils # (Auto) 0.0 TH/MM3 Basophils # (Auto) 0.0 TH/MM3 CBC Comment DIFF FINAL Differential Comment Laboratory Tests Test 06/13/17 16:21 06/14/17 06:52 Prostate Specific Antigen 34.66 NG/ML Blood Urea Nitrogen 60 MG/DL Creatinine 3.07 MG/DL Random Glucose 78 MG/DL Total Protein 6.9 GM/DL Albumin 2.2 GM/DL Calcium Level 8.4 MG/DL Alkaline Phosphatase 67 U/L Aspartate Amino Transf (AST/SGOT) 8 U/L Alanine Aminotransferase (ALT/SGPT) 12 U/L Total Bilirubin 0.4 MG/DL Sodium Level 138 MEQ/L Potassium Level 4.3 MEQ/L Chloride Level 105 MEQ/L Carbon Dioxide Level 25.0 MEQ/L Anion Gap 8 MEQ/L Estimat Glomerular Filtration Rate 24 ML/MIN Microbiology Date/Time Source Procedure Growth Status 06/13/17 10:26 Blood Peripheral Aerobic Blood Culture - Preliminary NO GROWTH IN 2 DAYS Resulted 06/13/17 10:26 Blood Peripheral Anaerobic Blood Culture - Preliminary NO GROWTH IN 2 DAYS Resulted 06/13/17 10:13 Blood Peripheral Aerobic Blood Culture - Preliminary NO GROWTH IN 2 DAYS Resulted 06/13/17 10:13 Blood Peripheral Anaerobic Blood Culture - Preliminary NO GROWTH IN 2 DAYS Resulted 06/14/17 10:50 Urine Catheterized Urine Urine Culture Pending Received Imaging Renal Ultrasound 06/12/17 0000 Signed Impressions: Service Date/Time: Monday, June 12, 2017 17:07 - CONCLUSION: Very limited exam , persistent hydronephrosis. Repeat noncontrast CT scan can be used evaluate the kidneys and possible mass on the right. Eventually the patient will need either and contrast CT scan of the abdomen and pelvis or MRI. Rick Palomo MD FACR Abdomen/Pelvis CT 06/12/17 0000 Signed Impressions: Service Date/Time: Monday, June 12, 2017 11:31 - CONCLUSION: Severely distended bladder with massive hydronephrosis left kidney. Massive hydronephrosis right kidney. Mass cannot be excluded. Trace ascites Follow up CT scan with IV contrast would be of benefit after bladder decompression and relief of the hydronephrosis. Rick Palomo MD FACR Physical Exam GENERAL: awake and alert, not in respiratory distress. SKIN: Warm and dry. No generalized rash. HEAD: Atraumatic. Normocephalic. No temporal wasting, or tenderness. EYES: [place] conjunctiva. No petechia or hemorrhage. EOM and intact. No scleral icterus. No injection or drainage. EARS, NOSE AND THROAT: Nose without bleeding or purulent nasal discharge. Mucous membranes pink and moist. No oral lesions noted. NECK: Trachea midline. Supple and not tender, no meningeal signs CARDIOVASCULAR: Regular rate and rhythm. No murmurs, rubs or gallops heard RESPIRATORY: Clear to auscultation. Breath sounds equal bilaterally. No rales , wheezing or rhonchi ABDOMEN: Soft, non-tender, nondistended. Bowel sounds present and normoactive. No guarding. No rebound. No organomegaly. : Mcmillan in place, urine slightly cloudy with some sediment EXTREMITIES: No clubbing, cyanosis, or edema. No calf tenderness. Well perfused and warm. NEUROLOGICAL: Non-focal PSYCHIATRIC: Normal affect, calm and cooperative. LINE: No evidence of infection Assessment & Plan Remarks IMPRESSION Sepsis due to source Bilateral hydronephrosis due to obstructive uropathy Known metastatic prostate CA CKD likely due to chronic obstruction RECOMMENDATION Continue Cefepime Continue Cipro po Follow C/S Follow CBC Monitor progress Will determine course of Rx once work-up is completed Florinda Senior MD Jun 15, 2017 11:45
[2017-06-15 12:00] VITALS: BP 158/73; PULSE 75; RESP 18; TEMP 97.8; O2SAT 97
[2017-06-15 16:00] VITALS: BP 160/85; PULSE 85; RESP 18; TEMP 98.2; O2SAT 99
[2017-06-15] MEDS: CEFEPIME INJ 2,000 MG in SODIUM CHLORIDE 0.9% INJ 100 ML IV SCH (16:43)
[2017-06-15] MEDS: hydrALAZINE HCL 25 MG TAB PO PRN (16:43)
[2017-06-15 20:00] VITALS: BP 160/64; PULSE 95; RESP 17; TEMP 99.1; O2SAT 98
[2017-06-16] VITALS (15 sets, daily range): BP systolic 110–177; BP diastolic 68–100; PULSE 66–94; RESP 16–22; TEMP 96.7–99; O2SAT 95–100
--- NOTE | 2017-06-16 08:01 | HHI.PR ---
Subjective Remarks He is sitting up in the bed and reports no new adverse changes. He was seen by Infectious Disease with the note appreciated. He appears to be tolerating the current treatment plan well. Objective - Vital Signs Date Time Temp Pulse Resp B/P (MAP) Pulse Ox O2 Delivery O2 Flow Rate FiO2 06/16/17 07:45 98.6 73 18 154/100 (118) 100 06/16/17 04:00 99.0 94 17 158/70 (99) 99 06/16/17 00:00 97.6 91 17 146/68 (94) 97 06/15/17 21:30 Room Air 06/15/17 20:00 99.1 95 17 160/64 (96) 98 06/15/17 16:00 98.2 85 18 160/85 (110) 99 06/15/17 12:00 97.8 75 18 158/73 (101) 97 I/O 06/15/17 06/15/17 06/15/17 06/16/17 06/16/17 06/16/17 07:00 15:00 23:00 07:00 15:00 23:00 Intake Total 720 ml 480 ml 360 ml Output Total 2150 ml 1000 ml 400 ml Balance -1430 ml -520 ml -40 ml Intake Oral 720 ml 480 ml 360 ml Output Urine Total 2150 ml 1000 ml 400 ml # Bowel Movements 2 Result Diagram: 06/14/1752 06/14/1752 Objective Remarks GENERAL: No new acute adverse complaints. SKIN: Warm and dry. HEAD: Normocephalic. Atraumatic. EYES: No scleral icterus. No injection or drainage. NECK: Supple, trachea midline. No JVD or lymphadenopathy. CARDIOVASCULAR: Regular rate and rhythm without murmurs, gallops, or rubs. RESPIRATORY: Breath sounds equal bilaterally. No accessory muscle use. GASTROINTESTINAL: Abdomen soft, non-tender, nondistended. MUSCULOSKELETAL: No cyanosis, or edema. BACK: Nontender without obvious deformity. No CVA tenderness. A/P Assessment and Plan ASSESSMENT 1. Accelerated Hypertension. 2. Acute Kidney Injury on Chronic Kidney Disease, Stage 3. 3. 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 4. Chronic Iron Deficiency Anemia secondary to Chronic Illness and Nutritional Deficit. 5. Benign Prostatic Hypertrophy with Elevated PSA. 6. Early Sepsis Presentation. 7. Recurrent Hypoglycemia. PLAN 1. Blood Cultures- negative. 2. Intravenous antibiotics continue. 3. Infectious Disease follows. 4. Closely monitor blood pressure. 5. Urology disposition given. 6. Follow up laboratory assessment. 7. DVT, PE and PUD prophylaxis. Buck Daniel MD Jun 16, 2017 08:01
[2017-06-16] MEDS: amLODIPine BESYLATE 5 MG TAB PO SCH (08:30)
[2017-06-16] MEDS: CIPROFLOXACIN 250 MG TAB PO SCH ×2 (08:30→21:15)
[2017-06-16] MEDS: METOPROLOL TARTRATE 25 MG TAB PO SCH (08:30)
[2017-06-16] MEDS: SODIUM CHLORIDE 0.9% FLUSH 10 ML FLUSH IV FLUSH SCH ×2 (08:36→21:16)
[2017-06-16 11:23] LABS: AUTOMATED NEUTROPHIL # 10.9 TH/MM3 (1.8-7.7); BASOPHIL % 0.2 % (0.0-2.0); EOSINOPHIL % 0.1 % (0.0-4.0); HEMATOCRIT 31.9 % (39.0-51.0); HEMOGLOBIN 10.5 GM/DL (13.0-17.0); LYMPH % 6.1 % (9.0-44.0); LYMPHOCYTE # 0.8 TH/MM3 (1.0-4.8); MEAN CELL VOLUME 72.5 FL (80.0-100.0); MEAN CORPUSCULAR HEMOGLOBIN 23.8 PG (27.0-34.0); MEAN CORPUSCULAR HGB CONC 32.8 % (32.0-36.0); MEAN PLATELET VOLUME 6.9 FL (7.0-11.0); MONO % 8.8 % (0.0-8.0); MONOCYTE # 1.1 TH/MM3 (0-0.9); NEUT % 84.8 % (16.0-70.0); PLATELET COUNT 379 TH/MM3 (150-450); RED CELL DISTRIBUTION WIDTH 23.6 % (11.6-17.2); WHITE BLOOD COUNT 12.9 TH/MM3 (4.0-11.0)
[2017-06-16 11:47] LABS: BICARBONATE 26.4 MEQ/L (21.0-32.0); CALCIUM 8.8 MG/DL (8.5-10.1); CREATININE 2.41 MG/DL (0.60-1.30)
[2017-06-16] MEDS ORDERED: SODIUM CHLOR 0.45% 500 ML INJ 500 ML IV ONE (13:00)
--- NOTE | 2017-06-16 13:36 | HHI.IDPN ---
Subjective Subjective Remarks Patient is an 81-year-old male, presented to the hospital complaining of one- week history of worsening abdominal and pelvic pain. He apparently has not been able to urinate. He lives alone. He has known metastatic prostate cancer , and has had prior problem with urinary retention. According to the record he is not very compliant as far as follow-up. CT abdomen/pelvics in ED reveals bilateral massive hydronephrosis. Patient also reported constipation over the past several weeks. Urology saw the patient, and a [place] catheter was inserted. Patient had some fevers yesterday. His WBC yesterday was 20,000, and is 19,000 today. His creatinine is elevated. Blood cultures are negative so far. There is no urine culture sent from admission. Patient currently is stating that his abdominal pain is better. Infectious disease consultation has been requested to evaluate the patient for sepsis. Notes reviewed D/W RN Patient fell today while transferring from bed to chair Temps ok C/S negative BC negative Antibiotics Cipro Cefepime Current Medications Medications (Trade) Dose Ordered Sig/Carol Route Start Time Stop Time Status Last Admin (NS Flush) 2 ml UNSCH PRN IV FLUSH 06/12/17 13:15 (NS Flush) 2 ml BID IV FLUSH 06/12/17 21:00 06/16/17 08:36 (Tylenol) 650 mg Q4H PRN PO 06/12/17 13:15 (Zofran Inj) 4 mg Q6H PRN IVP 06/12/17 13:15 (Tylenol) 650 mg Q6H PRN PO 06/12/17 13:15 (Narcan Inj) 0.4 mg UNSCH PRN IV PUSH 06/12/17 13:15 (Milk Of Magnesia Liq) 30 ml Q12H PRN PO 06/12/17 13:15 06/16/17 08:30 (Duoneb Neb) 1 ampule Q2HR NEB PRN NEB 06/12/17 13:15 (Cipro) 250 mg Q12HR PO 06/14/17 21:00 06/16/17 08:30 Cefepime HCl 2000 mg/Sodium Chloride 100 ml @ 200 mls/hr Q24H IV 06/14/17 16:00 06/15/17 16:43 (Cardizem) 60 mg Q8HR PO 06/16/17 14:00 UNV Sodium Chloride 500 ml @ 500 mls/hr BOLUS ONCE IV 06/16/17 13:00 06/16/17 13:59 UNV Lines PIV Past Medical History Chronic kidney disease stage IV Hypertension History of bladder outlet obstruction Medical noncompliance Metastatic prostate cancer Past Surgical History cystoscopy with 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 07/2010 Allergies: Coded Allergies: No Known Allergies (Verified Allergy, Unknown, 06/12/17) Objective . Vital Signs Date Time Temp Pulse Resp B/P (MAP) Pulse Ox O2 Delivery O2 Flow Rate FiO2 06/16/17 12:19 177/82 (113) 06/16/17 12:16 90 16 118/80 (93) 100 06/16/17 11:34 96.8 90 18 155/91 (112) 100 06/16/17 09:22 Room Air 06/16/17 07:45 98.6 73 18 154/100 (118) 100 06/16/17 04:00 99.0 94 17 158/70 (99) 99 06/16/17 00:00 97.6 91 17 146/68 (94) 97 06/15/17 21:30 Room Air 06/15/17 20:00 99.1 95 17 160/64 (96) 98 06/15/17 16:00 98.2 85 18 160/85 (110) 99 . Laboratory Tests Test 06/16/17 10:49 White Blood Count 12.9 TH/MM3 Red Blood Count 4.40 MIL/MM3 Hemoglobin 10.5 GM/DL Hematocrit 31.9 % Mean Corpuscular Volume 72.5 FL Mean Corpuscular Hemoglobin 23.8 PG Mean Corpuscular Hemoglobin Concent 32.8 % Red Cell Distribution Width 23.6 % Platelet Count 379 TH/MM3 Mean Platelet Volume 6.9 FL Neutrophils (%) (Auto) 84.8 % Lymphocytes (%) (Auto) 6.1 % Monocytes (%) (Auto) 8.8 % Eosinophils (%) (Auto) 0.1 % Basophils (%) (Auto) 0.2 % Neutrophils # (Auto) 10.9 TH/MM3 Lymphocytes # (Auto) 0.8 TH/MM3 Monocytes # (Auto) 1.1 TH/MM3 Eosinophils # (Auto) 0.0 TH/MM3 Basophils # (Auto) 0.0 TH/MM3 CBC Comment AUTO DIFF Laboratory Tests Test 06/16/17 10:49 Blood Urea Nitrogen 54 MG/DL Creatinine 2.41 MG/DL Random Glucose 127 MG/DL Calcium Level 8.8 MG/DL Sodium Level 140 MEQ/L Potassium Level 3.9 MEQ/L Chloride Level 105 MEQ/L Carbon Dioxide Level 26.4 MEQ/L Anion Gap 9 MEQ/L Estimat Glomerular Filtration Rate 31 ML/MIN Microbiology Date/Time Source Procedure Growth Status 06/14/17 10:50 Urine Catheterized Urine Urine Culture - Final NO GROWTH IN 48 HOURS. Complete Imaging Renal Ultrasound 06/12/17 0000 Signed Impressions: Service Date/Time: Monday, June 12, 2017 17:07 - CONCLUSION: Very limited exam , persistent hydronephrosis. Repeat noncontrast CT scan can be used evaluate the kidneys and possible mass on the right. Eventually the patient will need either and contrast CT scan of the abdomen and pelvis or MRI. Rick Palomo MD FACR Abdomen/Pelvis CT 06/12/17 0000 Signed Impressions: Service Date/Time: Monday, June 12, 2017 11:31 - CONCLUSION: Severely distended bladder with massive hydronephrosis left kidney. Massive hydronephrosis right kidney. Mass cannot be excluded. Trace ascites Follow up CT scan with IV contrast would be of benefit after bladder decompression and relief of the hydronephrosis. Rick Palomo MD FACR Physical Exam GENERAL: awake and alert, not in respiratory distress. SKIN: Warm and dry. No generalized rash. HEAD: Atraumatic. Normocephalic. No temporal wasting, or tenderness. EYES: [place] conjunctiva. No petechia or hemorrhage. EOM and intact. No scleral icterus. No injection or drainage. EARS, NOSE AND THROAT: Nose without bleeding or purulent nasal discharge. Mucous membranes pink and moist. No oral lesions noted. NECK: Trachea midline. Supple and not tender, no meningeal signs CARDIOVASCULAR: Regular rate and rhythm. No murmurs, rubs or gallops heard RESPIRATORY: Clear to auscultation. Breath sounds equal bilaterally. No rales , wheezing or rhonchi ABDOMEN: Soft, non-tender, nondistended. Bowel sounds present and normoactive. No organomegaly. : Paniagua in place, urine looks clear EXTREMITIES: No clubbing, cyanosis, or edema. No calf tenderness. Well perfused and warm. NEUROLOGICAL: Non-focal PSYCHIATRIC: Normal affect, calm and cooperative. LINE: No evidence of infection Assessment & Plan Remarks IMPRESSION Sepsis due to source Bilateral hydronephrosis due to obstructive uropathy - has paniagua in place - UC negative Known metastatic prostate CA CKD likely due to chronic obstruction RECOMMENDATION Stop Cefepime Continue Cipro po - complete 14 days Rx Monitor progress D/W Florinda Fonseca MD Jun 16, 2017 13:36
[2017-06-16] MEDS: DILTIAZEM HCL 60 MG TAB PO SCH ×2 (14:00→21:15)
[2017-06-16] MEDS ORDERED: HEPARIN SODIUM - SQ 10,000 UNITS/ML VIAL SQ ONE (15:30)
--- NOTE | 2017-06-16 15:43 | RADRPT ---
EXAM DATE/TIME: 06/16/2017 15:33 [facility] COMPARISON: No previous studies available for comparison. INDICATIONS : Dizziness. RADIATION DOSE: 56.35 CTDIvol (mGy) MEDICAL HISTORY : Carcinoma, prostate. Renal failure, chronic. Hypertension. SURGICAL HISTORY : None. ENCOUNTER: Initial ACUITY: 1 day PAIN SCALE: 4/10 LOCATION: cranial TECHNIQUE: Multiple contiguous axial images were obtained of the head. Using automated exposure control and adj ustment of the mA and/or kV according to patient size, radiation dose was kept as low as reasonably a chievable to obtain optimal diagnostic quality images. DICOM format image data is available electro nically for review and comparison. FINDINGS: CEREBRUM: Diffuse cerebral atrophy is noted. Moderate periventricular and subcortical white matter small vesse l ischemic changes are noted bilaterally. There is an old lacunar infarct within the right thalamus. No evidence of midline shift, mass lesion, hemorrhage or acute infarction. No extra-axial fluid wyatt ections are seen. POSTERIOR FOSSA: The cerebellum and brainstem are intact. The 4th ventricle is midline. The cerebellopontine angle i s unremarkable. EXTRACRANIAL: The visualized portion of the orbits is intact. SKULL: The calvaria is intact. No evidence of skull fracture. CONCLUSION: 1. Moderate periventricular and subcortical white matter small vessel ischemic changes bilaterally. 2. Diffuse cerebral atrophy. 3. Old right thalamic lacunar infarct. 4. No acute infarct, acute hemorrhage, mass effect or extra-axial fluid collections. Bebeto Dutton MD on June 16, 2017 at 15:39 Board Certified Radiologist. This report was verified electronically.
--- NOTE | 2017-06-16 16:12 | RADRPT ---
EXAM DATE/TIME: 06/16/2017 15:35 [facility] COMPARISON: None. INDICATIONS : <<Left shoulder pain.>> RADIATION DOSE: <<39.24>> CTDIvol (mGy) MEDICAL HISTORY : Carcinoma, prostate. Renal failure, chronic. Hypertension. SURGICAL HISTORY : None. ENCOUNTER: Initial ACUITY: 1 day PAIN SCALE: 7/10 LOCATION: Left shoulder. TECHNIQUE: Volumetric scanning of the shoulder was performed. Using automated exposure control and adjustment o f the mA and/or kV according to patient size, radiation dose was kept as low as reasonably achievable to obtain optimal diagnostic quality images. DICOM format image data is available electronically f or review and comparison. FINDINGS: There is an accessory ossicle at the acromion. No acute fractures identified the shoulder joint. Ther e is mild osteoarthritis with joint space narrowing osteophyte formation. The supraspinatus muscle ap pears atrophic which could be related to rotator cuff disease. CONCLUSION: 1. 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 2. Degenerative changes involving the supraspinatus muscle possibly related to chronic rotator cuff d isease. No acute fracture. Joshua Orozco MD on June 16, 2017 at 16:07 Board Certified Radiologist. This report was verified electronically.
[2017-06-16 20:47] LABS: TROPONIN I 0.02 NG/ML (0.02-0.05)
[2017-06-16] MEDS: HEPARIN SODIUM - SQ 10,000 UNITS/ML VIAL SQ SCH (21:15)
[2017-06-17] VITALS (12 sets, daily range): BP systolic 124–156; BP diastolic 74–94; PULSE 72–98; RESP 15–18; TEMP 96.1–99.8; O2SAT 96–100
[2017-06-17] MEDS: DILTIAZEM HCL 60 MG TAB PO SCH ×3 (06:35→21:36)
[2017-06-17] MEDS: CIPROFLOXACIN 250 MG TAB PO SCH ×2 (08:54→20:01)
[2017-06-17] MEDS: HEPARIN SODIUM - SQ 10,000 UNITS/ML VIAL SQ SCH ×2 (08:54→20:02)
--- NOTE | 2017-06-17 08:56 | HHI.PR ---
Subjective Remarks The patient is with more activity and has been working with physical therapy. He says that he is trying to do better with his nutritional intake. His blood count is appearing to hold stable. Infection Disease has given disposition for antibiotics. Objective - Vital Signs Date Time Temp Pulse Resp B/P (MAP) Pulse Ox O2 Delivery O2 Flow Rate FiO2 06/17/17 08:10 99.8 93 18 124/79 (94) 100 06/17/17 04:10 98.8 94 18 152/94 (113) 99 06/17/17 04:00 98 06/17/17 00:10 98.6 88 18 129/80 (96) 96 06/17/17 00:09 92 06/16/17 20:10 99.0 80 18 153/77 (102) 100 06/16/17 20:00 84 06/16/17 17:31 92 06/16/17 16:10 98.4 66 18 162/93 (116) 95 06/16/17 14:53 88 22 158/86 (110) 06/16/17 14:49 86 06/16/17 14:35 77 22 96 06/16/17 14:10 96.7 79 18 156/79 (104) 97 06/16/17 13:10 97.1 75 18 150/92 (111) 97 110/73 (85) 117/70 (86) Manual Cuff/Auscultation 06/16/17 12:19 177/82 (113) 06/16/17 12:16 90 16 118/80 (93) 100 06/16/17 11:34 96.8 90 18 155/91 (112) 100 06/16/17 09:22 Room Air I/O 06/16/17 06/16/17 06/16/17 06/17/17 06/17/17 06/17/17 07:00 15:00 23:00 07:00 15:00 23:00 Intake Total 360 ml 720 ml 120 ml 240 ml Output Total 400 ml 1300 ml 400 ml 0 ml Balance -40 ml -580 ml -280 ml 240 ml Intake Oral 360 ml 720 ml 120 ml 240 ml Output Urine Total 400 ml 1300 ml 400 ml 0 ml # Bowel Movements 0 0 0 Result Diagram: 06/16/17 1049 06/16/17 1049 Objective Remarks GENERAL: Alert and in no distress. SKIN: Warm and dry. HEAD: Normocephalic. EYES: No scleral icterus. No injection or drainage. NECK: Supple, trachea midline. No JVD or lymphadenopathy. CARDIOVASCULAR: Regular rate and rhythm without murmurs, gallops or rubs. RESPIRATORY: Breath sounds equal bilaterally. No accessory muscle use. GASTROINTESTINAL: Abdomen soft, non-tender and nondistended. MUSCULOSKELETAL: No cyanosis or edema. BACK: Nontender without obvious deformity. No CVA tenderness. A/P Assessment and Plan ASSESSMENT 1. Accelerated Hypertension-improved. 2. Acute Kidney Injury on Chronic Kidney Disease, Stage 3. 3. 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 4. Chronic Iron Deficiency Anemia secondary to Chronic Illness and Nutritional Deficit. 5. Benign Prostatic Hypertrophy with Elevated PSA. 6. Early Sepsis Presentation. 7. Recurrent Hypoglycemia-stable. PLAN 1. Encouraged good nutritional intake. 2. Intravenous antibiotics continue. 3. Continue activity as per physical therapy. 4. Closely monitor blood pressure. 5. Urology and Infectious Disease dispositions are given. 6. Discharge Planning. 7. DVT, PE and PUD prophylaxis. Buck Daniel MD Jun 17, 2017 08:55
[2017-06-17] MEDS: SODIUM CHLORIDE 0.9% FLUSH 10 ML FLUSH IV FLUSH SCH ×2 (08:58→20:04)
--- NOTE | 2017-06-17 18:02 | ECHRPT ---
Indication: Persistent atrial fibrillation CONCLUSIONS The left ventricular systolic function is mildly reduced with an estimated ejection fraction of 45%. Mild concentric left ventricular hypertrophy. Mildly dilated left ventricle. The left atrial size is mildly dilated. There is mild tricuspid valve regurgitation. The estimated pulmonary arterial pressure is 33 mmHg. BP: 177 / 82 HR: 98 Rhythm: Other MEASUREMENTS (Male / Female) Normal Values Technical Quality:Good 2D ECHO LV Diastolic Diameter PLAX 4.2 cm 4.2 - 5.9 / 3.9 - 5.3 cm LV Systolic Diameter PLAX 3.5 cm IVS Diastolic Thickness 1.5 cm 0.6 - 1.0 / 0.6 - 0.9 cm LVPW Diastolic Thickness 1.5 cm 0.6 - 1.0 / 0.6 - 0.9 cm LV Relative Wall Thickness 0.7 LVOT Diameter 2.1 cm M-MODE Aortic Root Diameter MM 2.7 cm LA Systolic Diameter MM 4.3 cm LA Ao Ratio MM 1.6 AV Cusp Separation MM 1.8 cm DOPPLER AV Peak Velocity 162.0 cm/s AV Peak Gradient 10.5 mmHg LVOT Peak Velocity 91.8 cm/s LVOT Peak Gradient 3.4 mmHg AV Area Cont Eq pk 2.0 cm TR Peak Velocity 238.0 cm/s TR Peak Gradient 22.7 mmHg Right Atrial Pressure 10.0 mmHg Pulmonary Artery Systolic Pressu 32.7 mmHg Right Ventricular Systolic Press 32.7 mmHg PV Peak Velocity 124.0 cm/s PV Peak Gradient 6.2 mmHg FINDINGS LEFT VENTRICLE The left ventricular systolic function is mildly reduced with an estimated ejection fraction of 45%. Mild concentric left ventricular hypertrophy. Mildly dilated left ventricle. RIGHT VENTRICLE Normal right ventricular size and systolic function. LEFT ATRIUM The left atrial size is mildly dilated. RIGHT ATRIUM The right atrial size is normal. ATRIAL SEPTUM Normal atrial septal thickness without atrial level shunting by limited color doppler interrogation. AORTA The aortic root and proximal ascending aorta are normal in size on limited imaging. MITRAL VALVE Structurally normal mitral valve. No mitral valve stenosis or regurgitation. AORTIC VALVE Trileaflet aortic valve. No aortic valve stenosis or regurgitation. TRICUSPID VALVE There is mild tricuspid valve regurgitation. The estimated pulmonary arterial pressure is 32.7 mmHg. PULMONARY VALVE No pulmonary valve regurgitation or stenosis. VESSELS The inferior vena cava is normal in size. PERICARDIUM No pericardial effusion. Robbi Marin MD, FACC (Electronically Signed) Final Date:17 June 2017 18:01
--- NOTE | 2017-06-17 23:45 | EKG ---
Date Performed: 06/16/2017 Time Performed: 14:48:07 PTAGE: 81 years EKG: Sinus rhythm WITH ABERRANT CONDUCTION OR VENTRICULAR PREMATURE COMPLEXES LEFT ANTERIOR FASCICULAR BLOCK VOLTAGE C RITERIA FOR LVH NONSPECIFIC T-WAVE ABNORMALITY ABNORMAL ECG PREVIOUS TRACING : 06/12/2017 09.43 Since the previous tracing, no significant change noted DOCTOR: Jimmy Connolly Interpretating Date/Time 06/17/2017 23:41:17
[2017-06-18 04:20] VITALS: BP 147/87; PULSE 97; RESP 18; TEMP 100; O2SAT 98
[2017-06-18] MEDS: DILTIAZEM HCL 60 MG TAB PO SCH ×2 (05:28→14:24)
[2017-06-18 08:00] VITALS: BP 157/96; PULSE 94; RESP 18; TEMP 98.8; O2SAT 98
[2017-06-18] MEDS: SODIUM CHLORIDE 0.9% FLUSH 10 ML FLUSH IV FLUSH SCH (08:11)
[2017-06-18] MEDS: CIPROFLOXACIN 250 MG TAB PO SCH (08:11)
[2017-06-18] MEDS: HEPARIN SODIUM - SQ 10,000 UNITS/ML VIAL SQ SCH (08:11)
[2017-06-18 10:10] VITALS: O2SAT 98
[2017-06-18 11:25] VITALS: BP 130/82; PULSE 86; RESP 18; TEMP 97.7; O2SAT 98
[2017-06-18 12:00] VITALS: PULSE 87
--- NOTE | 2017-06-18 12:50 | HHI.PR ---
Subjective Remarks He is doing well without any new adverse findings. He states that he is more than ready to go home. Objective - Vital Signs Date Time Temp Pulse Resp B/P (MAP) Pulse Ox O2 Delivery O2 Flow Rate FiO2 06/18/17 11:25 97.7 86 18 130/82 (98) 98 06/18/17 10:10 98 06/18/17 08:00 98.8 94 18 157/96 (116) 98 06/18/17 04:20 100.0 97 18 147/87 (107) 98 06/17/17 23:55 98.2 94 17 146/74 (98) 99 06/17/17 20:00 99.0 81 15 Automatic Cuff 100 06/17/17 19:54 100 06/17/17 15:59 98.9 72 17 156/75 (102) 100 I/O 06/17/17 06/17/17 06/17/17 06/18/17 06/18/17 06/18/17 07:00 15:00 23:00 07:00 15:00 23:00 Intake Total 240 ml 960 ml 480 ml Output Total 0 ml 600 ml 400 ml Balance 240 ml 360 ml 80 ml Intake Oral 240 ml 960 ml 480 ml Output Urine Total 0 ml 600 ml 400 ml # Bowel Movements 0 1 0 Result Diagram: 06/16/17 1049 06/16/17 1049 A/P Assessment and Plan ASSESSMENT 1. Accelerated Hypertension. 2. Acute Kidney Injury on Chronic Kidney Disease, Stage 3. 3. 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 4. Chronic Iron Deficiency Anemia secondary to Chronic Illness and Nutritional Deficit. 5. Benign Prostatic Hypertrophy with Elevated PSA. 6. Early Sepsis Presentation. 7. Recurrent Hypoglycemia. MEDICALLY IMPROVED STATUS PLAN 1. Closely monitor blood pressure. 2. Intravenous antibiotics continue. 3. Infectious Disease disposition has been given. 4. Urology disposition has been given. 5. Physical Therapy disposition is given. 6. Discharge Planning. 7. DVT, PE and PUD prophylaxis. HOME TODAY WITH HOME HEALTH CARE Buck Daniel MD Jun 18, 2017 12:50
[2017-06-18] MEDS ORDERED: DILT60TA33 PO (13:04)
[2017-06-18] MEDS ORDERED: CIPR250T52 PO (13:04)
--- NOTE | 2017-06-18 13:10 | HHI.FF ---
Face to Face Verification Diagnosis: (1) BLADDER NECK OBSTRUCTION (2) Hypertensive urgency Home Health Nursing Order: Signs/symptoms of disease process Nursing assessment with vital signs [place] catheter maintenance I have seen patient Bebeto Owens on 06/18/17. My clinical findings support the need for the requested home health care services because: He has an indwelling [place] catheter whereby the care needs to be monitored. He requires the assistance of some to leave his home. Med compliance is questionable Limited ability to care for self I certify that my clinical findings support that this patient is homebound because: He requires someone's assistance to leave his home. He has markedly limited ability for fpc ambulation. Unsafe to leave home unassisted Buck Daniel MD Jun 18, 2017 13:10
[2017-06-18] MEDS ORDERED: WALKER WHEELS/F1 MIS (14:15)
== END 2017-06-18 15:38 | disposition home health service (06) | DRG 698 ==
LOC: NEPC 09:24 → NEDA 13:11 → N06A 14:58
PROVIDERS: ADMIT Internal Medicine; ATTEND Internal Medicine
PROC: 0T7D7ZZ Dilation of Urethra, Via Natural or Artificial Opening (ICD-10-PCS; principal; 2017-06-12)
PROC: 0T9B70Z Drainage of Bladder with Drainage Device, Via Natural or Artificial Opening (ICD-10-PCS; 2017-06-12)
DX: N32.0 Bladder-neck obstruction (principal); A41.9 Sepsis, unspecified organism; I13.0 Hypertensive heart and chronic kidney disease with heart failure and stage 1 through stage 4 chronic kidney disease, or unspecified chronic kidney disease; N18.4 Chronic kidney disease, stage 4 (severe); I50.9 Heart failure, unspecified; N17.9 Acute kidney failure, unspecified; N13.30 Unspecified hydronephrosis; N40.0 Benign prostatic hyperplasia without lower urinary tract symptoms; R33.8 Other retention of urine; D63.1 Anemia in chronic kidney disease; I16.0 Hypertensive urgency; Z91.19 Patient's noncompliance with other medical treatment and regimen; K59.00 Constipation, unspecified; R73.9 Hyperglycemia, unspecified; Z72.0 Tobacco use; E16.2 Hypoglycemia, unspecified; W19.XXXA Unspecified fall, initial encounter; M19.90 Unspecified osteoarthritis, unspecified site; Z85.46 Personal history of malignant neoplasm of prostate
CPT/HCPCS: 36430; 70450; 73200; 74176; 76775; 80048; 80053; 81001; 82272; 82378; 82550; 82947; 82948; 83036; 83540; 83550; 83690; 83735; 84145; 84153; 84436; 84443; 84484; 85025; 86850; 86900; 86901; 86920; 87040; 87086; 93005; 93306; 96374; J0360; J0692; J0744; J1644; J1720; J2270; J2405; J3370; J7040; J7050; P9016